=== PATIENT | male | born 1990 | race Hispanic/Latino ===

== ENCOUNTER 2018-02-23 14:32 | Emergency (ER) | payer SELFPAY ==
--- NOTE | 2018-02-23 16:34 | RAD REPORT ---
EXAM DESCRIPTION: RAD - Hand Right 3 View - 02/23/2018 4:18 pm CLINICAL HISTORY: Blunt force trauma distal fifth digit, continued pain and diminished range of ruth on COMPARISON: None. FINDINGS: A 4 mm size triangular fracture fragment is present from the dorsal base fifth distal phal anx. This is displaced 3- 4 mm from the remainder of the distal phalanx likely retracted from the elliott gin by the extensor tendon. This will not properly healing current configuration. No other acute bone or joint finding. No foreign body or other soft tissue abnormality. IMPRESSION: Avulsed 4 mm sized fracture fragment from the dorsal base of the fifth distal phalanx.
--- NOTE | 2018-02-23 17:02 | ER ---
Nurse's Notes [facility] Name: Luis Angel Monroy Jr Age: 27 yrs Sex: Male : 1990 Arrival Date: 02/23/2018 Time: 14:34 Bed 10 Private MD: Diagnosis: 5th Phalanx Fracture Presentation: 02/23 15:26 Presenting complaint: Patient states: " I shut my finger in a door a few weeks ago, I ph put a splint on it myself but it hasn't gotten any better." Deformity noted to R pinky finger. Transition of care: patient was not received from another setting of care. Onset of symptoms was February 23, 2018. Risk Assessment: Do you want to hurt yourself or someone else? Patient reports no desire to harm self or others. Initial Sepsis Screen: Does the patient meet any 2 criteria? No. Patient's initial sepsis screen is negative. Does the patient have a suspected source of infection? No. Patient's initial sepsis screen is negative. Care prior to arrival: None. 15:26 Method Of Arrival: Ambulatory ph 15:26 Acuity: TIMUR 4 ph Triage Assessment: 15:54 General: Appears in no apparent distress. comfortable, slender, well groomed, Behavior ph is calm, cooperative, appropriate for age. Pain: Complains of pain in dorsal aspect of distal phalanx of right little finger Pain currently is 2 out of 10 on a pain scale. Neuro: Level of Consciousness is awake, alert, obeys commands, Oriented to person, place, time, situation. Cardiovascular: Capillary refill < 3 seconds Patient's skin is warm and dry. Respiratory: Airway is patent Respiratory effort is even, unlabored, Respiratory pattern is regular, symmetrical. GI: No signs and/or symptoms were reported involving the gastrointestinal system. Derm: Skin is intact, is healthy with good turgor, Skin is pink, warm \\T\\ dry. Musculoskeletal: Circulation, motion, and sensation intact. Range of motion: limited in DIP of right little finger Bony deformity noted of dorsal aspect of distal phalanx of right little finger Swelling present in dorsal aspect of distal phalanx of right little finger. Injury Description: Crush injury sustained to dorsal aspect of distal phalanx of right little finger was sustained " 2 weeks". Historical: - Allergies: 15:29 No Known Allergies; ph - Home Meds: 15:53 None [Active]; ph - PMHx: 15:53 None; ph - PSHx: 15:53 None; ph - Immunization history:: Adult Immunizations unknown. - Social history:: Smoking status: Patient/guardian denies using tobacco. - Ebola Screening: : No symptoms or risks identified at this time. Screenin:53 Abuse screen: Denies threats or abuse. Denies injuries from another. Nutritional ph screening: No deficits noted. Tuberculosis screening: No symptoms or risk factors identified. Fall Risk None identified. Assessment: 15:56 General: see triage assessment. ph Vital Signs: 15:27 BP 118 / 82; Pulse 77; Resp 18; Temp 98.1; Pulse Ox 98% on R/A; Weight 81.65 kg; Height ph 6 ft. 0 in. (182.88 cm); Pain 2/10; 15:27 Body Mass Index 24.41 (81.65 kg, 182.88 cm) ph ED Course: 14:34 Patient arrived in ED. as 15:27 Triage completed. 15:41 Jc Mack PA is PHCP. [facility] 15:41 Bora Siddiqui MD is Attending Physician. [facility] 15:53 Ary Hutchins, RN is Primary Nurse. ph 15:53 Arm band placed on. ph 15:56 Patient has correct armband on for positive identification. Bed in low position. Call light in reach. 16:14 X-ray completed. Portable x-ray completed in exam room. Patient tolerated procedure kp1 well. 16:15 Hand Right 3 View XRAY In Process Unspecified. EDMS 17:00 Jamal Jurado MD is Referral Physician. [facility] Administered Medications: No medications were administered Outcome: 17:01 Discharge ordered by . [facility] 17:29 Patient left the ED. Signatures: Dispatcher [employer] EDMS Jc Mack PA PA jmm Martinez, Amelia as Ary Hutchins, ERIN RN Erin Cosme, ERIN RN Padmini Ricardo kp1
--- NOTE | 2018-02-23 17:02 | EDPHYS ---
Physician Documentation [facility] Name: Luis Angel Monroy Jr Age: 27 yrs Sex: Male : 1990 Arrival Date: 02/23/2018 Time: 14:34 Bed 10 Private MD: ED Physician Bora Siddiqui HPI: 02/23 16:09 This 27 yrs old Male presents to ER via Ambulatory with complaints of Finger jmm Injury. 16:09 The patient or guardian reports pain, swelling. The complaints affect the dorsal aspect jmm of distal phalanx of right little finger and right little fingernail. Onset: The symptoms/episode began/occurred acutely, 2 week(s) ago. Associated signs and symptoms: Pertinent negatives: fever. This is a 27 year old male with no chronic medical conditions that presents to the ED with right 5th finger swelling after the patient states he hit something. Patient states he is unsure whether he may have hit a tooth. The patient denies fever, patient denies drainage from the injury site. . Historical: - Allergies: 15:29 No Known Allergies; ph - Home Meds: 15:53 None [Active]; ph - PMHx: 15:53 None; ph - PSHx: 15:53 None; ph - Immunization history:: Adult Immunizations unknown. - Social history:: Smoking status: Patient/guardian denies using tobacco. - Ebola Screening: : No symptoms or risks identified at this time. ROS: 16:09 Constitutional: Negative for fever, chills, and weight loss. jmm 16:09 MS/extremity: Positive for erythema, pain, swelling. 16:09 Skin: Positive for erythema, swelling. 16:09 All other systems are negative. Exam: 16:09 Head/Face: atraumatic. Chest/axilla: Normal chest wall appearance and motion. jmm Cardiovascular: Regular rate and rhythm. No edema appreciated Respiratory: Normal respirations, no respiratory distress appreciated Abdomen/GI: Non distended, soft Back: Normal ROM 16:09 Constitutional: The patient appears in no acute distress, alert, awake. 16:09 Musculoskeletal/extremity: swelling noted to the rgith 5th dip, FROM is appreciated, < 2 sec dist cap refill. NVI. 16:09 Skin: erythema noted to the right 5th distal phalanx. 16:09 Neuro: Orientation: is normal, Mentation: is normal, Memory: is normal. 16:09 Psych: Behavior/mood is pleasant, cooperative. Vital Signs: 15:27 BP 118 / 82; Pulse 77; Resp 18; Temp 98.1; Pulse Ox 98% on R/A; Weight 81.65 kg; Height ph 6 ft. 0 in. (182.88 cm); Pain 2/10; 15:27 Body Mass Index 24.41 (81.65 kg, 182.88 cm) ph Procedures: 17:20 Splinting: Splint applied to right little fingernail using finger splint. applied by [facility] nurse. Examined by me, post splint application: Patient tolerated. MDM: 16:01 Patient medically screened. [facility] 16:17 Data reviewed: vital signs, nurses notes. [facility] 17:00 Data reviewed: radiologic studies, plain films. Counseling: I had a detailed discussion [facility] with the patient and/or guardian regarding: the historical points, exam findings, and any diagnostic results supporting the discharge/admit diagnosis, radiology results, the need for outpatient follow up, to return to the emergency department if symptoms worsen or persist or if there are any questions or concerns that arise at home. 02/23 16:01 Order name: Hand Right 3 View XRAY; Complete Time: 16:37 [facility] 02/23 16:38 Order name: Finger Splint; Complete Time: 17:28 [facility] Administered Medications: No medications were administered Disposition: 02/23/18 17:01 Discharged to Home. Impression: 5th Phalanx Fracture. - Condition is Stable. - Discharge Instructions: Finger Fracture. - Medication Reconciliation Form, Thank You Letter, Antibiotic Education, Prescription Opioid Use, Work release form form. - Follow up: Jamal Jurado MD; When: 2 - 3 days; Reason: Continuance of care. Addendum: 02/25/2018 19:55 Co-signature as Attending Physician, Bora Siddiqui MD I agree with the assessment and w a plan of care. Signatures: Dispatcher [employer] EDMS Jc Mack PA PA Ary Orellana RN RN ph Baxter, Heather, RN RN hb Appiah, William, MD MD wa Corrections: (The following items were deleted from the chart) 02/23 17:29 17:01 02/23/2018 17:01 Discharged to Home. Impression: 5th Phalanx Fracture. Condition hb is Stable. Forms are Medication Reconciliation Form, Thank You Letter, Antibiotic Education, Prescription Opioid Use. Follow up: Jamal Jurado; When: 2 - 3 days; Reason: Continuance of care. [email or web address]
== END 2018-02-23 17:29 | disposition home or self-care (01) ==
LOC: ER 14:32
DX: S62.606A Fracture of unspecified phalanx of right little finger, initial encounter for closed fracture (principal); X58.XXXA Exposure to other specified factors, initial encounter; Y93.9 Activity, unspecified; Y92.9 Unspecified place or not applicable; Y99.9 Unspecified external cause status
CPT/HCPCS: 99282